=== PATIENT | male | born 1990 | race Caucasian/White ===

== ENCOUNTER 2018-06-28 07:21 | Emergency (ER) | payer MEDICAID ==
[2018-06-28 07:28] VITALS: BP 131/70
--- NOTE | 2018-06-28 07:32 | ER Document Report ---
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 This is the same ankle that has gout in the past . no fever. Usually a steroid shot and something for pain makes it go away. Associated Symptoms: None Exacerbated by: Walking Relieved by: Other - See above Similar symptoms previously: Yes Recently seen / treated by doctor: No - ROS ROS below otherwise negative: Yes Systems Reviewed and Negative: Yes All other systems reviewed and negative Past Medical History - General Information source: Patient - Social History Smoking Status: Unknown if Ever Smoked Occupation: [employer] Lives with: Family Family History: Reviewed & Not Pertinent - Medical History Notes: Gout Surgical Hx: Negative Vertical Provider Document - CONSTITUTIONAL Agree With Documented VS: Yes Exam Limitations: No Limitations - MUSCULOSKELETAL/EXTREMETIES Musculoskeletal/Extremeties: MAEW, Tender, Edema - warm left ankle, not red, n/ V intact, 2+ dp - NEURO Level of Consciousness: Awake Motor/Sensory: No Motor Deficit, No Sensory Deficit - DERM Integumentary: No Rash Course - Vital Signs Vital signs: Temp Pulse Resp BP Pulse Ox 98.1 F 65 16 131/70 H 98 06/28/18 07:27 06/28/18 07:27 06/28/18 07:27 06/28/18 07:27 06/28/18 07:27 Discharge - Discharge Clinical Impression: Gout of left ankle Qualifiers: Gout etiology: unspecified cause Chronicity: acute Qualified Code(s): M10.9 - Gout, unspecified Condition: Good Disposition: HOME, SELF-CARE Instructions: Acetaminophen, Gout ([facility]), Gout Diet ([facility]), Steroid Medication Additional Instructions: Prednisone for a week Tylenol up to 4000 mg a day for pain See your doctor for follow-up Prescriptions: Prednisone [Deltasone 10 mg Tablet] 10 mg PO ASDIR PRN #21 tablet PRN Reason: Forms: Return to Work
[2018-06-28] MEDS ORDERED: ACETAMINOPHEN 325 MG TABLET PO ONE (07:46)
[2018-06-28] MEDS ORDERED: PREDNISONE 20 MG TABLET PO ONE (07:46)
== END 2018-06-28 07:58 | disposition home or self-care (01) ==
LOC: ER 07:21
DX: M10.9 Gout, unspecified (principal); M25.572 Pain in left ankle and joints of left foot
CPT/HCPCS: 99283; J7512